=== PATIENT | male | born 1945 | race Caucasian/White ===

== ENCOUNTER 2016-10-23 22:08 | Inpatient (IN) | payer MEDICARE ==
--- NOTE | ~2016-10-23 | CN ---
Consultation Report [facility] [address] [place]. [address] NAME: LEWIS COLEMAN : 41 STATUS : ADM IN [facility]#: [id number] AGE: 70 ADM/REG DATE : 10/24/16 MR#: [id number] REPORT SERV DATE: 10/25/16 DICTATED BY: DAMARIS VALDOVINOS DATE: 10/24/16 REPORT STATUS : Draft TRANSCRIBED BY: MODL DATE: 10/24/16 DATE OF CONSULTATION: CHIEF COMPLAINT: Urinary retention, prostate cancer. HISTORY OF PRESENT ILLNESS: Mr. Coleman is a 70-year-old who presented to the emergency room last night with abdominal pain and high blood pressure. He is diagnosed with a pulmonary embolism last week and was started on Pradaxa. He tells me that within the last four months urinary symptoms have worsened. His PSA was 9 or approximately 9. He underwent a prostate needle biopsy in [place], [place]. His relates to me that it was unifocal Wheeler 6 prostate cancer. Despite Flomax and Avodart, urinary symptoms have worsened. Upon admission to the ICU for a very high blood pressure (for uncontrolled hypertension), he was noted to have a distended abdomen. Mendez catheter was placed with return of approximately 4000 mL of urine. He has never had overt retention before. When he was diagnosed with a pulmonary embolism last week, he was started on a Breo inhaler. PAST MEDICAL HISTORY: Pulmonary embolism, hypertension, recent diagnosis of low-risk prostate cancer, hypercholesterolemia. ALLERGIES: NO KNOWN DRUG ALLERGIES. SOCIAL HISTORY: . Retired efficiency analyst. No illicit drugs. Rare social alcohol use. FAMILY HISTORY: Breast cancer in two aunts, coronary artery disease, hypertension. REVIEW OF SYSTEMS: Positive for weak stream, nocturnal enuresis, and shortness of breath with pleuritic chest pain last week. His pleuritic chest pain and breathing is better than it was last week. The remainder of review is negative as per the admitting H and P. PHYSICAL EXAMINATION: VITAL SIGNS: Heart rate 78, respirations 18, 179/98, 97.2. GENERAL: Pleasant 70-year-old, in no acute distress. He is wearing supplemental oxygen. HEENT: Sclerae anicteric. LUNGS: Clear. HEART: Regular rate rhythm. CHEST: Clear anteriorly. ABDOMEN: Soft, nontender, nondistended. No palpable mass. No rebound. No guarding. No right or left CVA tenderness. : Phallus is circumcised. Indwelling Mendez catheter is draining clear yellow urine. Testes normally descended. RECTAL: I did not perform digital rectal exam. NEUROLOGIC: He is oriented to person, place, time, and situation. LYMPH: No supraclavicular or inguinal adenopathy. Consultation Report [place] [address] [place]. [id number] NAME: LEWIS COLEMAN : 41 STATUS : ADM IN [facility]#: [id number] AGE: 70 ADM/REG DATE : 10/24/16 MR#: [id number] REPORT SERV DATE: 10/25/16 DICTATED BY: DAMARIS VALDOVINOS DATE: 10/24/16 REPORT STATUS : Draft TRANSCRIBED BY: VERONICA DATE: 10/24/16 LABORATORY DATA: His creatinine is 1.5 upon admission. Again 1.5 today. IMAGING: CTA chest shows bilateral pulmonary emboli as well as the upper pole of the both kidneys containing simple appearing cysts. PATHOLOGY: None available to review. IMPRESSION: 1. Prostate cancer, low risk Lauren 6. 2. Benign prostatic hyperplasia with obstruction. 3. Urinary retention. 4. Pulmonary embolus. PLAN: 1. Mr. Coleman will continue on Flomax and Avodart. 2. His urinary symptoms acutely worsen when he was started on Breo. I think it is reasonable for him to stop this inhaler given the temporal association with worsening urinary symptoms. 3. He will follow up with either me or with his urologist in [place], [place], to learn self-catheterization. He certainly would not be able to undergo a surgical procedure regarding urinary retention for several months. If I see him in the office, I will need to confirm his biopsy findings. The PSA was repeated this admission and was 8.3. [facility]/VERONICA Damaris Valdovinos M.D. / [id number] CC: Joann Gloria M.D.
--- NOTE | ~2016-10-23 | HP ---
History And Physical [place] [id number] [place]. [address] NAME: LEWIS PAINTING : 41 STATUS : ADM IN [facility]#: [id number] AGE: 70 ADM/REG DATE : 10/24/16 MR#: [id number] REPORT SERV DATE: 10/24/16 DICTATED BY: YESIKA GLORIA DATE: 10/24/16 REPORT STATUS : Draft TRANSCRIBED BY: MODL DATE: 10/24/16 DATE OF ADMISSION: 10/24/2016 HISTORY OF PRESENT ILLNESS: This is a 70-year-old patient, whom I was called to admit from the emergency room. The patient was recently diagnosed with a small prostate cancer, it is not metastatic. He recently took a long drive from [place] to [place], and upon arrival back to [place], he started developing some pleuritic pain, flu-like symptoms, and increasing shortness of breath. The patient went to see his primary care physician, who is in [place]. There were some concerns about possibly having a pulmonary embolus. The patient was sent for a V/Q scan because apparently his creatinine was slightly elevated, that was read either as low probability or negative. I do not have the results of the scan here since it was done in [place]. The patient went home and then had a syncopal episode with increasing shortness of breath, went back to his primary care physician on the . A CTA of the chest was done and was positive for bilateral pulmonary emboli. The patient was started on Xarelto at 15 mg p.o. b.i.d., and sent home. He then over the next few days began feeling slightly worse and in fact was taking his blood pressure quite often at home and was running high. Here in the emergency room, the patient needed additional hydralazine because his blood pressure was almost 200 systolic. In fact, the patient said he had been monitoring at home and it was running just as high at home. He had called his primary care physician and his home medication of Lotensin was increased to twice a day, and the patient was started on sliding scale of clonidine. So upon arrival here, he was still hypertensive, felt fuzzy headed and confused, but he had no further syncopal episodes since last week. He denies any hemoptysis, bloody stools, chest pain, or leg numbness. The patient also noticed that he had lower extremity swelling when he came back from his trip, but it was bilateral. CT scan of the head done here showed no evidence of stroke or bleed, but showed some moderate advanced deep white matter chronic microvascular ischemic changes. The patient subsequently is being admitted to the ICU for further care and monitoring especially in the setting of an acute PE and hypertension, being on Xarelto. ALLERGIES: THE PATIENT HAS NO KNOWN DRUG ALLERGIES. HOME MEDICATIONS: His home medications include Tylenol 1000 mg p.o. b.i.d. p.r.n. pain; Lotrel 5/20 mg 1 tablet twice daily; Catapres 0.1 mg p.r.n. for a systolic blood pressure greater than 180 or diastolic greater than 105; Cardura is 8 mg p.o. every evening; and then Avodart 0.5 mg every evening. Flonase 2 sprays to each nostril daily p.r.n. nasal congestion. He was also started on Breo Ellipta 200/25 mcg inhaler one puff every morning; glucosamine chondroitin sulfate 1 tablet daily; and Levaquin 750 mg p.o. daily x5 days, that has been completed. Mevacor 40 mg every evening; Ditropan 5 mg at bedtime; prednisone 10 mg Dosepak last taken on the ; and Xarelto 15 mg p.o. b.i.d., last taken at 7 p.m. on the . PAST MEDICAL HISTORY AND PAST SURGICAL HISTORY: Includes hypertension, recent diagnosis of prostate cancer, and hypercholesterolemia. No other major surgeries. No history of coronary artery disease. SOCIAL HISTORY: The patient lives at home with his . 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 [address] NAME: LEWIS PAINTING : 41 STATUS : ADM IN [facility]#: [id number] AGE: 70 ADM/REG DATE : 10/24/16 MR#: [id number] REPORT SERV DATE: 10/24/16 DICTATED BY: YESIKA GLORIA DATE: 10/24/16 REPORT STATUS : Draft TRANSCRIBED BY: MODL DATE: 10/24/16 counseling. He has four children who are grown. The patient has a remote history of smoking in the [employer]. He occasionally has a glass of wine. FAMILY HISTORY: Positive for hypertension, coronary artery disease, and breast cancer in 2 aunts. REVIEW OF SYSTEMS: Review of systems was done and is as per history of present illness. A 12-point review of systems was done and is as per history of present illness. The patient wears glasses. He has had no blurred vision or loss of vision, and then the rest is as above. PHYSICAL EXAMINATION: GENERAL: The patient is alert and awake, in no apparent distress. He is on 2 L and O2 saturation is 98%. Heart rate is 78, in normal sinus rhythm. Respiratory rate is 22. Blood pressure is 205/101. SKIN: Warm and dry. HEENT: Head is atraumatic and normocephalic. Pupils are equal, round, and reactive to light and accommodation. Extraocular eye movements are intact. Sclerae anicteric. Conjunctivae are pink. Nasal mucosa is within normal limits. Oral mucosa is moist. Tongue is midline. NECK: Supple without JVD, lymphadenopathy, or thyromegaly. LUNGS: Exam is notable for diminished breath sounds at the left base, but no wheezing or crackles are heard. Normal chest excursion is noted and there is no chest deformity. CARDIAC: Exam reveals a regular rate and rhythm with no significant murmurs or heaves. ABDOMEN: Mildly protuberant. Bowel sounds are present, but diminished. There is no pain to palpation of the abdomen. There is almost a rounded mass-like density in the right upper quadrant that extends down slightly below the umbilicus. It is not painful to palpation. RECTAL AND GENITAL EXAM: Deferred. EXTREMITIES: Without cyanosis or clubbing. There is trace edema of the lower extremities. Pulses are palpable and symmetrical. Capillary refill is within normal limits. NEUROLOGIC: Cranial nerves II through XII are grossly intact. Motor and sensory are intact. DIAGNOSTIC DATA: CTA of the chest as well as the CT scan of the head are as mentioned above. Urinalysis is unremarkable. BNP is 125. Total protein is 6.6, albumin 3.3, and LFTs are normal. Sodium is 136, potassium 3.7, chloride 104, bicarb 24, BUN 34, creatinine 1.54, glucose is 106, calcium is 9, magnesium is 2.3, and troponin is 0.04. White cell count is 11, hemoglobin 13, hematocrit 39, and platelet count a 170,000. INR is 1.9 and PTT is 29.3. EKG shows a sinus rhythm with first degree AV block. ASSESSMENT AND PLAN: 1. This is a 70-year-old patient, recently diagnosed with prostate cancer and then subsequently found to have a bilateral pulmonary emboli, who was started on Xarelto, now presents with hypertension. The plan will be to place a Mendez since the patient has a history of difficulty voiding. This may explain the abdominal findings. May also help bring down his blood pressure. Since the patient has bilateral pulmonary emboli, we will do an echocardiogram and lower extremity Dopplers for the morning. Continue Xarelto for now and consider Ekos catheter after further discussion on morning History And Physical [address] [address] NAME: LEWIS PAINTING : 41 STATUS : ADM IN PAT#: [id number] AGE: 70 ADM/REG DATE : 10/24/16 MR#: [id number] REPORT SERV DATE: 10/24/16 DICTATED BY: YESIKA GLORIA DATE: 10/24/16 REPORT STATUS : Draft TRANSCRIBED BY: VERONICA DATE: 10/24/16 rounds. 2. Hypertension: Continue home medications and write for at least hydralazine p.r.n. We may need to start a Cardene drip if he does not respond to the hydralazine. 3. Hypercholesterolemia: We will continue home medications. 4. We will discontinue prednisone. The patient completed Levaquin for a possibility of bronchitis, but more than likely his pleuritic chest pain was secondary to his pulmonary embolus. The patient has a mild degree of chronic kidney disease and partially renal cysts were noted on his kidneys, which were visualized during the CTA. It appears that the patient may have some level of chronic renal disease, chronic kidney disease III. We will follow creatinine closely, especially in the setting of receiving IV contrast. The patient does not need any deep vein thrombosis prophylaxis since he is on Xarelto. We will place the patient on Protonix for GI prophylaxis. We will obtain records from the patient's general practitioner in the morning. Family will be updated as well. Total time spent with the patient evaluating the patient was 40 minutes, for a total time of 40 minutes of critical care time. The patient is critical in the sense that he has bilateral PEs and is at risk for circulatory failure. The patient also is at risk for renal failure, respiratory failure, and neurologic deterioration if his blood pressure continues to be high on Xarelto, so we will need to follow that closely. He requires high complexity decision making regarding philosophy of care, hemodynamic assessment, neurologic monitoring and treatment. Total time spent with the patient was 40 minutes, starting at 1:30 a.m. to 2:10 a.m. /VERONICA Yesika Gloria M.D. / [id number] CC: Yesika Gloria M.D.
--- NOTE | ~2016-10-23 | DS ---
Discharge Summary [facility] [address] [place]. [address] NAME: LEWIS PAINTING : 41 STATUS : DIS IN PAT#: [id number] AGE: 70 ADM/REG DATE : 10/24/16 MR#: [id number] REPORT SERV DATE: 10/27/16 DICTATED BY: CHRIS MOTA DATE: 10/26/16 REPORT STATUS : Draft TRANSCRIBED BY: MODL DATE: 10/26/16 ADMISSION DATE: 10/24/2016 DISCHARGE DATE: 10/26/2016 CONSULTANTS: Dr. Joann Gloria, Pulmonary/Critical Care and Dr. Glenn Lopez, Urology. DISCHARGE DIAGNOSES: 1. Semi-acute bilateral pulmonary embolism with deep vein thrombosis in the left leg. 2. Hypertensive urgency. 3. Newly diagnosed right side goiter with hyperthyroidism biochemically. 4. Stage 3 chronic kidney disease. 5. Acute urinary retention. 6. Prostate cancer with benign prostatic hypertrophy as well. 7. First degree AV block. 8. Mild aortic stenosis. HISTORY: This gentleman had taken a long car trip to [place], drove straight through on the way back. When he got home, he was having some episodes of pleuritic right-sided chest pain. He was diagnosed as bronchitis and given Levaquin, Breo Ellipta, and prednisone. This did not help much. He reports a V/Q scan was done, it was "unremarkable." Then on 10/20/2016, he had continued symptoms. CTA was done showing bilateral pulmonary emboli. He reports he was started on Xarelto samples 15 mg p.o. b.i.d., but at home, his blood pressures began to climb higher and higher and higher, and he ended up being admitted to our Intensive Care team, Dr. Gloria taking care of him. His blood pressure improved considerably, but he had severe urinary retention with over 4 L of urine in his bladder, remarkably not symptomatic. A catheter was placed and he was seen by Dr. Glenn Lopez, who recommended that the catheter be left in place, see him back in the office in a week to have a voiding trial and intermittent straight cath education as well as follow up of his prostate cancer. The patient was given the option to follow up with his primary urologist, Dr. Caicedo in [place], but the patient selected to see Dr. Lopez. He is continued on Xarelto. We checked the co-pay cost for him, it will be 45 dollars per month which he states he can afford. The patient is weaned off oxygen. His O2 saturations are currently ranging 94% to 96% on room air. His hemoglobin has drifted down slightly, it is 11.9. His PCP should follow this up. He has no clinical signs of bleeding. His creatinine has been mildly elevated through his time here, but stable, ranging between 1.47 and 1.54. He has been educated on how to take care of his Mendez and use a leg bag and will follow up with Dr. Lopez as described above. His TSH was suppressed at 0.070, which is low. His free T4 was elevated at 1.88 and the CTA that he had of his chest here on 10/23/2016 not only showed the moderate burden of bilateral acute pulmonary emboli and some subsegmental atelectasis, inferior right middle lobe, and cardiomegaly and moderate coronary artery calcification and simple cyst in the upper pole of bilateral kidneys, but had also revealed large right-sided thyroid goiter, 4 x 6.8 cm x 8 cm Discharge Summary [place] [address] [place]. [address] NAME: LEWIS PAINTING : 41 STATUS : DIS IN PAT#: [id number] AGE: 70 ADM/REG DATE : 10/24/16 MR#: [id number] REPORT SERV DATE: 10/27/16 DICTATED BY: CHRIS MOTA DATE: 10/26/16 REPORT STATUS : Draft TRANSCRIBED BY: VERONICA DATE: 10/26/16 displacing the trachea to the left of midline. A thyroid uptake scan was not performed as the patient just had the CTA and the iodine in that contrast will interfere with a thyroid uptake scan. He does not clinically have signs of hyperthyroidism. We have start him on low-dose beta cristobal. He had a first-degree AV block to begin with. It did not worsen with low-dose beta-cristobal. He has an echocardiogram that was done, 10/24/2016. His left atrial size is enlarged at 4.1 cm. Left ventricular ejection fraction is normal at 61%, prominent right ventricular size, but the function was normal. He has aortic sclerosis with mild aortic valvular stenosis. The patient's discharge medications will include Xarelto 15 mg p.o. b.i.d., he still has the 21-day supply. He will finish that and after that, he will be on 20 mg daily thereafter. Lotrel 5/20 tablet twice a day, Cardura 8 mg daily, Avodart 0.5 mg every evening, Mevacor 40 mg every evening, metoprolol 12.5 mg p.o. b.i.d., Ditropan 5 mg at bedtime, Tylenol 650 q.6 hours p.r.n. pain, Flonase nasal spray p.r.n., Catapres 0.1 mg if systolic greater than 180 or diastolic greater than 105, glucosamine chondroitin one tablet daily. We stopped the Levaquin and Breo Ellipta. He has no sign of active respiratory infection at this time. He is to follow up with his PCP, Dr. Pat Moran in [place] within the next week and with urologist, Dr. Glenn Lopez next week. He has a Mendez catheter in place and has been educated in its care. I spent 44 minutes today with the patient and with his discharge plan. DICTATED BY: Wanda Campbell/VERONICA Chris Mota M.D. / [id number] CC: Wanda Campbell M.D. John C House, M.D. Munford Yates III, M.D.
[2016-10-23 21:27] LABS: BASOPHILS 0.2 %; BASOPHILS ABSOLUTE 0.02 10/3/uL (0.0-0.16); EOSINOPHILS 0 %; HEMATOCRIT 39.6 % (40.0-51.0); HEMOGLOBIN 13.3 g/dL (13.6-17.8); IMMATURE GRANULOCYTES 4.1 %; IMMATURE GRANULOCYTES ABSOLUTE 0.48 10/3/uL (0.0-0.11); LYMPHOCYTES 8.6 %; MANUAL DIFF NO %; MEAN CORPUS HGB CONC 33.6 g/dL (32.0-36.0); MEAN CORPUSCULAR HEMOGLOB 30.4 pg (26.0-34.0); MEAN CORPUSCULAR VOLUME 90.6 fL (80-100); MEAN PLATELET VOLUME 10.5 fL (9.2-13.0); MONOCYTES 8.1 %; MONOCYTES ABSOLUTE 0.94 10/3/uL (0.21-1.20); NEUTROPHILS ABSOLUTE 9.19 10/3/uL (2.02-8.40); PLATELET COUNT 170 10/3/uL (150-400); RBC DISTRIBUTION WIDTH 12.7 % (12.0-16.0); RED CELL COUNT 4.37 10/6/uL (4.7-6.1); WHITE BLOOD CELLS 11.6 10/3/uL (4.5-10.5)
[2016-10-23 21:35] LABS: INTERNATIONAL NORMAL RATI 1.9 UNITS (-); PARTIAL THROMBO TIME 29.3 SEC (22.5-37.2); PROTIME (NOT ORD) 21.7 SEC (12.0-14.5)
[2016-10-23 21:46] LABS: ALBUMIN 3.3 G/DL (3.5-5.0); BUN (BLOOD UREA NITROGEN) 34 MG/DL (6-23); CHEST PAIN PROFILE TAT 0 Hrs 23 Mins; CHLORIDE, SERUM 104 MMOL/L (96-112); CO2 (CARBON DIOXIDE) 24 MMOL/L (24-34); CREATININE 1.54 MG/DL (0.70-1.30); DIRECT BILIRUBIN 0.1 MG/DL (0.0-0.4); GFR AFRICAN AMERICAN 51 ML/MIN (>=60); GFR NON AFRICAN AMERICAN 44 ML/MIN (>=60); GLUCOSE, SERUM 106 MG/DL (60-99); INDIRECT BILIRUBIN(NOT ORDER) 0.7 MG/DL (0.1-0.9); POTASSIUM, SERUM 3.7 MMOL/L (3.5-5.3); SODIUM, SERUM 136 MMOL/L (135-148); TOTAL BILIRUBIN 0.8 MG/DL (0-1.2); TOTAL PROTEIN 6.6 G/DL (6.0-8.5); TROPONIN I 0.04 NG/ML (<0.05)
[2016-10-23 22:39] LABS: ASCORBIC ACID (UR NOT ORDER) NEG (NEG); BILIRUBIN, URINE NEGATIVE (NEG); ER URINALYSIS TAT 0 Hrs 07 Mins; KETONE, URINE NEGATIVE (NEG); LEUKOCYTE ESTERASE(NOT OR NEG (NEG); NITRITE (URINE) NEG (NEG); WBC (NOT ORDERED) (RFLEX) 2 (0-5)
[2016-10-24] MEDS ORDERED: ACET500CAP PO (00:45)
[2016-10-24] MEDS ORDERED: GLUCCHONDR PO (00:46)
[2016-10-24] MEDS ORDERED: STERAPRED DS10 MG (00:47)
[2016-10-24] MEDS ORDERED: LEVAQUIN750 MG PO (00:48)
[2016-10-24] MEDS ORDERED: FLONASE NAS (00:49)
[2016-10-24] MEDS ORDERED: MEVACOR40 MG PO (00:49)
[2016-10-24] MEDS ORDERED: CARDURA8 MG PO (00:49)
[2016-10-24] MEDS ORDERED: AVODART PO (00:49)
[2016-10-24] MEDS ORDERED: LOTREL1 CA2 PO (00:49)
[2016-10-24] MEDS ORDERED: CAT1 PO (00:50)
[2016-10-24] MEDS ORDERED: DITRO5 PO (00:50)
[2016-10-24] MEDS ORDERED: BREO ELLIPTA 21 EACH INH (00:52)
[2016-10-24] MEDS ORDERED: XARELTO15 MG PO (00:52)
[2016-10-24 04:34] LABS: BASOPHILS 0.1 %; BASOPHILS ABSOLUTE 0.01 10/3/uL (0.0-0.16); EOSINOPHILS 0.2 %; EOSINOPHILS ABSOLUTE 0.02 10/3/uL (0.0-0.53); HEMATOCRIT 36.2 % (40.0-51.0); HEMOGLOBIN 12.2 g/dL (13.6-17.8); IMMATURE GRANULOCYTES 3.1 %; IMMATURE GRANULOCYTES ABSOLUTE 0.35 10/3/uL (0.0-0.11); LYMPHOCYTES 9.7 %; LYMPHOCYTES ABSOLUTE 1.08 10/3/uL (0.67-4.30); MEAN CORPUS HGB CONC 33.7 g/dL (32.0-36.0); MEAN CORPUSCULAR HEMOGLOB 30.7 pg (26.0-34.0); MEAN PLATELET VOLUME 10.4 fL (9.2-13.0); MONOCYTES 9.3 %; MONOCYTES ABSOLUTE 1.04 10/3/uL (0.21-1.20); NEUTROPHILS 77.6 %; NEUTROPHILS ABSOLUTE 8.67 10/3/uL (2.02-8.40); PLATELET COUNT 154 10/3/uL (150-400); RBC DISTRIBUTION WIDTH 12.7 % (12.0-16.0); RED CELL COUNT 3.98 10/6/uL (4.7-6.1); WHITE BLOOD CELLS 11.2 10/3/uL (4.5-10.5)
[2016-10-24 04:35] LABS: MANUAL DIFF NO %
[2016-10-24 04:40] LABS: INTERNATIONAL NORMAL RATI 2.1 UNITS (-); PARTIAL THROMBO TIME 30.1 SEC (22.5-37.2)
[2016-10-24 04:55] LABS: BUN (BLOOD UREA NITROGEN) 33 MG/DL (6-23); CALCIUM, SERUM 8.7 MG/DL (8.5-10.4); CHLORIDE, SERUM 108 MMOL/L (96-112); CO2 (CARBON DIOXIDE) 24 MMOL/L (24-34); CREATININE 1.52 MG/DL (0.70-1.30); GFR AFRICAN AMERICAN 52 ML/MIN (>=60); GFR NON AFRICAN AMERICAN 45 ML/MIN (>=60); GLUCOSE, SERUM 100 MG/DL (60-99); PHOSPHORUS, SERUM 3.3 MG/DL (2.5-4.5); POTASSIUM, SERUM 3.5 MMOL/L (3.5-5.3); SODIUM, SERUM 140 MMOL/L (135-148)
[2016-10-24 06:37] LABS: FREE T4 1.88 NG/DL (0.76-1.46)
[2016-10-24 07:17] LABS: PROSTATIC SPECIFIC AG 8.33 NG/ML (0.0-6.5)
[2016-10-24 07:28] LABS: BE (BASE EXCESS) -2.6 MEQ/L (0 +/- 2.5); HCO3 (ACTUAL BICARBONATE) 20.6 MEQ/L (23-27); HEMOBLOGIN CONTENT 13.7 G/DL (14-18); INSTRUMENT SERIAL # 8087; METHEMOGLOBIN 0.3 % (0-3); O2 CONTENT 18.5 VOL% (18-24); PCO2 (CO2 TENSION) 32 MMHG (35-45); PO2 (O2 TENSION) 90 MMHG (79-93); SAMPLE Arterial; pH 7.43 (7.37-7.43)
[2016-10-26 05:32] LABS: BASOPHILS 0.1 %; BASOPHILS ABSOLUTE 0.01 10/3/uL (0.0-0.16); EOSINOPHILS 2.9 %; EOSINOPHILS ABSOLUTE 0.24 10/3/uL (0.0-0.53); HEMATOCRIT 35.3 % (40.0-51.0); HEMOGLOBIN 11.9 g/dL (13.6-17.8); IMMATURE GRANULOCYTES 1.8 %; IMMATURE GRANULOCYTES ABSOLUTE 0.15 10/3/uL (0.0-0.11); LYMPHOCYTES 14.6 %; LYMPHOCYTES ABSOLUTE 1.22 10/3/uL (0.67-4.30); MEAN CORPUS HGB CONC 33.7 g/dL (32.0-36.0); MEAN CORPUSCULAR HEMOGLOB 30.9 pg (26.0-34.0); MEAN CORPUSCULAR VOLUME 91.7 fL (80-100); MEAN PLATELET VOLUME 10.4 fL (9.2-13.0); MONOCYTES 9.4 %; MONOCYTES ABSOLUTE 0.78 10/3/uL (0.21-1.20); NEUTROPHILS 71.2 %; NEUTROPHILS ABSOLUTE 5.94 10/3/uL (2.02-8.40); PLATELET COUNT 147 10/3/uL (150-400); RBC DISTRIBUTION WIDTH 12.6 % (12.0-16.0); RED CELL COUNT 3.85 10/6/uL (4.7-6.1); WHITE BLOOD CELLS 8.3 10/3/uL (4.5-10.5)
[2016-10-26 05:38] LABS: MANUAL DIFF NO %
[2016-10-26 05:47] LABS: CALCIUM, SERUM 8.2 MG/DL (8.5-10.4); CHLORIDE, SERUM 106 MMOL/L (96-112); CO2 (CARBON DIOXIDE) 26 MMOL/L (24-34); CREATININE 1.47 MG/DL (0.70-1.30); GFR AFRICAN AMERICAN 54 ML/MIN (>=60); GFR NON AFRICAN AMERICAN 47 ML/MIN (>=60); GLUCOSE, SERUM 99 MG/DL (60-99); POTASSIUM, SERUM 3.8 MMOL/L (3.5-5.3); SODIUM, SERUM 139 MMOL/L (135-148)
[2016-10-26 05:50] LABS: BUN (BLOOD UREA NITROGEN) 27 MG/DL (6-23)
[2016-10-26] MEDS ORDERED: T PO (15:55)
[2016-10-26] MEDS ORDERED: XARELTO20 MG PO (15:56)
[2016-10-26] MEDS ORDERED: XARELTO15 MG PO (15:57)
[2016-10-26] MEDS ORDERED: LOP25 PO (15:57)
[2016-10-26 19:46] LABS: ALDOSTERONE/RENIN RAT 1.4 ratio (0.1-3.7)
[2016-11-03 10:13] LABS: ALDOSTERONE 9.3 ng/dL
== END 2016-10-26 17:33 | disposition home or self-care (01) | DRG 304 ==
LOC: ER 22:08 → CCU 10-24 00:59 → 5SO 10-24 19:37
PROVIDERS: Hospitalist; Internal Medicine Critical Care Medicine; Internal Medicine Pulmonary Disease; Nurse Practitioner Acute Care; Specialist
DX: I16.0 Hypertensive urgency (principal); I26.99 Other pulmonary embolism without acute cor pulmonale; I82.402 Acute embolism and thrombosis of unspecified deep veins of left lower extremity; N28.1 Cyst of kidney, acquired; C61 Malignant neoplasm of prostate; N18.3 Chronic kidney disease, stage 3 (moderate); I12.9 Hypertensive chronic kidney disease with stage 1 through stage 4 chronic kidney disease, or unspecified chronic kidney disease; E78.00 Pure hypercholesterolemia, unspecified; I25.10 Atherosclerotic heart disease of native coronary artery without angina pectoris; Z82.49 Family history of ischemic heart disease and other diseases of the circulatory system; Z80.3 Family history of malignant neoplasm of breast; E05.90 Thyrotoxicosis, unspecified without thyrotoxic crisis or storm; I44.0 Atrioventricular block, first degree; I35.0 Nonrheumatic aortic (valve) stenosis; N40.1 Benign prostatic hyperplasia with lower urinary tract symptoms; Z87.891 Personal history of nicotine dependence
CPT/HCPCS: 36600; 70450; 71010; 71275; 80048; 80076; 81001; 82088; 82805; 83735; 83880; 84100; 84153; 84244; 84439; 84443; 84481; 84484; 85025; 85610; 85730; 87641; 93005; 93970; 93975; 96374; 99285; A9270-GY; C8929; C9113; J0360; Q9957; Q9967